=== PATIENT | female | born 1995 | race Caucasian/White ===

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

== ENCOUNTER 2017-09-03 09:45 | Emergency (ER) | payer BC ==
[2017-09-03 10:29] VITALS: BP 177/74
--- NOTE | 2017-09-03 11:02 | UC ---
Throat Pain/Nasal Errol HPI - HPI Summary HPI Summary: sore throat x 3 days + fever, chills, body aches dry cough brother + for Flu - History of Current Complaint Chief Complaint: UCRespiratory Stated Complaint: COUGH, ST, ACHES, CONGESTION Time Seen by Provider: 09/03/17 10:53 Hx Obtained From: Patient Hx Last Menstrual Period: 08/06/17 Onset/Duration: Gradual Onset, Lasting Days - 3, Still Present Severity: Moderate Pain Intensity: 8 Cough: Nonproductive Associated Signs & Symptoms: Positive: Nasal Discharge, Fever. Negative: Wheezing, Hoarseness, Sinus Discomfort, Rash - Allergies/Home Medications Allergies/Adverse Reactions: Allergies Allergy/AdvReac Type Severity Reaction Status Date / Time red dye Allergy Hives Verified 09/03/17 10:19 Beta shannan Allergy See Comment Uncoded 12/25/16 15:49 PMH/Surg Hx/FS Hx/Imm Hx Previously Healthy: Yes - Surgical History Surgical History: Yes Surgery Procedure, Year, and Place: tonsilectomy - Family History Known Family History: Positive: Hypertension - Social History Alcohol Use: Occasionally Substance Use Type: None Smoking Status (MU): Never Smoked Tobacco - Immunization History Vaccination Up to Date: Yes Review of Systems Constitutional: Fever, Chills, Fatigue Skin: Negative Eyes: Negative ENT: Sore Throat, Nasal Discharge Respiratory: Cough Cardiovascular: Negative Gastrointestinal: Negative Is Patient Immunocompromised?: No All Other Systems Reviewed And Are Negative: Yes Physical Exam Triage Information Reviewed: Yes Appearance: Well-Appearing, No Pain Distress, Well-Nourished Vital Signs: Initial Vital Signs Temp 98.8 F 09/03/17 10:20 Pulse 105 09/03/17 10:20 Resp 16 09/03/17 10:20 BP 177/74 09/03/17 10:20 Pulse Ox 98 09/03/17 10:20 Vital Signs Reviewed: Yes Eye Exam: Normal Eyes: Positive: Conjunctiva Clear ENT: Positive: Normal ENT inspection, Hearing grossly normal, Pharynx normal Neck: Positive: Supple, Nontender, No Lymphadenopathy Respiratory: Positive: Chest non-tender, Lungs clear, Normal breath sounds Cardiovascular: Positive: Tachycardia Abdominal Exam: Normal Skin Exam: Normal Throat Pain/Nasal Course/Dx - Differential Dx/Diagnosis Provider Diagnoses: influenza Discharge - Discharge Plan Condition: Stable Disposition: HOME Patient Education Materials: Influenza (ED) Forms: *School Release, *Work Release Referrals: Jason Jansen MD [Primary Care Provider] - If Needed
== END 2017-09-03 11:05 | disposition home or self-care (01) ==
LOC: UCCORT 09:45
DX: J11.1 Influenza due to unidentified influenza virus with other respiratory manifestations (principal)
CPT/HCPCS: 87502; 99211; G0463

== ENCOUNTER 2019-09-22 19:32 | Emergency (ER) | payer OTHER ==
[2019-09-22 19:56] VITALS: BP 146/72
--- NOTE | 2019-09-22 20:33 | UC ---
Complaint Female HPI - HPI Summary HPI Summary: 24-year-old female presenting at 21 weeks with "white clumpy discharge " and vaginal itching 3 days. Patient also notes burning with urination but not every time. Denies urinary frequency and urgency. Denies hematuria. Denies abdominal pain. Denies nausea or vomiting. Denies flank pain. Denies fever and chills. Patient states she thinks it is just sees infection but wants to make sure. States "concern for STDs because her partner was recently gone for a few days and won't tell her where he he went." - History Of Current Complaint Chief Complaint: UCGU Stated Complaint: /21 WKS PREG Hx Obtained From: Patient Hx Last Menstrual Period: 08/06/17 Pain Intensity: 0 - Allergies/Home Medications Allergies/Adverse Reactions: Allergies Allergy/AdvReac Type Severity Reaction Status Date / Time red dye Allergy Hives Verified 09/22/19 19:50 Beta shannan Allergy See Comment Uncoded 09/22/19 19:50 Home Medications: Home Medications Cephalexin CAP* [Keflex CAP*] 500 mg PO TID #12 cap 09/22/19 [Rx] Cephalexin CAP* [Keflex CAP*] 500 mg PO TID #15 cap 09/22/19 [Rx] Clotrimazole 1% VAGINAL CREAM* [Gyne-Lotrimin 1% VAGINAL CREAM*] 1 applic VAGINAL BEDTIME 7 Days #1 tube 09/22/19 [Rx] PMH/Surg Hx/FS Hx/Imm Hx Previously Healthy: Yes - Surgical History Surgical History: Yes Surgery Procedure, Year, and Place: tonsilectomy - Family History Known Family History: Positive: Hypertension - Social History Alcohol Use: None Substance Use Type: None Smoking Status (MU): Never Smoked Tobacco - Immunization History Vaccination Up to Date: Yes Review of Systems All Other Systems Reviewed And Are Negative: Yes Constitutional: Positive: Negative Skin: Positive: Negative Respiratory: Positive: Negative Cardiovascular: Positive: Negative Gastrointestinal: Positive: Negative Genitourinary: Positive: Dysuria, Vaginal/Penile Itching, Vaginal/Penile Discharge - White clumpy. Negative: Hematuria, Frequency, Urgency Musculoskeletal: Positive: Negative Neurological/Mental Status: Positive: Negative Physical Exam - Summary Physical Exam Summary: Vital Signs Reviewed: Yes A+Ox3, no distress, well-appearing Eyes: Conjunctiva Clear ENT: Hearing grossly normal neck: supple Respiratory: Positive: No respiratory distress, No accessory muscle use Cardiovascular: skin color reflect adequate perfusion Musculoskeletal Exam: HIGHTOWER x 4 without difficulty Neurological: Positive: Alert, ambulatory without difficulty Psychological: Positive: age appropriate behavior Skin: Positive: no rash, no ecchymosis Vital Signs: Initial Vital Signs Temp 97.9 F 09/22/19 19:51 Pulse 80 09/22/19 19:51 Resp 16 09/22/19 19:51 BP 146/72 09/22/19 19:51 Pulse Ox 100 09/22/19 19:51 Lab Results 09/22/19 Range/Units 20:15 POC Urine Color Yellow POC Urine Clarity Clear POC Urine pH 6.0 (5-9) POC Ur Specif [place] >= 1.030 (1.010-1.030) POC Urine Protein Negative (Negative) POC Ur Glucose (UA) Negative (Negative) POC Urine Ketones Negative (Negative) POC Urine Blood Negative (Negative) POC Urine Nitrite Negative (Negative) POC Urine Bilirubin Negative (Negative) POC Urine Urobilinogen 1.0 (Negative) POC U Leukocyte Esteras 1+ A (Negative) Complaint Female Dx - Course Course Of Treatment: UA 1+ leuks. I treated patient with Keflex for possible UTI. Patient allergic to red dye which is found and Macrobid so Keflex was used as alternative therapy. I also treated patient with clotrimazole vaginal cream for treatment of possible yeast infection based on symptoms. Patient declined pelvic exam so she self swabbed for yeast, BV, Trichomonas. Patient's urine was also sent for gonorrhea and chlamydia testing. I informed the patient should be notified with any positive results that require change in treatment. I also informed the patient and her blood pressure was elevated at her visit today and to follow up with her OB next week for reevaluation of symptoms and blood pressure. Patient voiced understanding and agreed with treatment plan. - Differential Dx/Diagnosis Differential Diagnosis/HQI/PQRI: Sexually Transmitted Disease, Urinary Tract Infection, Other - vulvovaginal candidiasis Provider Diagnosis: Vaginal yeast infection, UTI (urinary tract infection) Discharge ED - Sign-Out/Discharge Documenting (check all that apply): Patient Departure All imaging exams completed and their final reports reviewed: No Studies - Discharge Plan Condition: Stable Disposition: HOME Prescriptions: Cephalexin CAP* [Keflex CAP*] 500 mg PO TID #15 cap Cephalexin CAP* [Keflex CAP*] 500 mg PO TID #12 cap Clotrimazole 1% VAGINAL CREAM* [Gyne-Lotrimin 1% VAGINAL CREAM*] 1 applic VAGINAL BEDTIME 7 Days #1 tube Patient Education Materials: Yeast Infection (ED), Urinary Tract Infection in (ED) Referrals: Martha Fountain CNM [Primary Care Provider] - Additional Instructions: Take Keflex for treatment of possible UTI. Use the clotrimazole cream as prescribed for treatment of possible yeast infection. You will be notified with any positive results from urine and swab tests that require a change in treatment. Follow up with your PCP or OB if symptoms do not resolve. Go to emergency room with any new or worsening symptoms. - Billing Disposition and Condition Condition: STABLE Disposition: Home
[2019-09-22] MEDS ORDERED: Cephalexin CAP* 500 MG PO ONE (21:00)
--- NOTE | 2019-09-24 09:29 | UC ---
- Progress Note Progress Note: + gardnerella -could treat w/ flagyl at lower dose in 250mgs TID x 7 days. generally considered safe in but there is a black box warning as it is carcinogenic in mice and rats. She should call her OB to discuss further. + frances - treated w/ clotrimazole apprioprioately. GC/chlam pending Course/Dx - Diagnoses Provider Diagnoses: Vaginal yeast infection, UTI (urinary tract infection) Discharge ED - Sign-Out/Discharge Documenting (check all that apply): Post-Discharge Follow Up All imaging exams completed and their final reports reviewed: No Studies - Discharge Plan Condition: Stable Disposition: HOME Prescriptions: Cephalexin CAP* [Keflex CAP*] 500 mg PO TID #15 cap Cephalexin CAP* [Keflex CAP*] 500 mg PO TID #12 cap Clotrimazole 1% VAGINAL CREAM* [Gyne-Lotrimin 1% VAGINAL CREAM*] 1 applic VAGINAL BEDTIME 7 Days #1 tube Patient Education Materials: Yeast Infection (ED), Urinary Tract Infection in (ED) Referrals: Martha Fountain CNM [Primary Care Provider] - Additional Instructions: Take Keflex for treatment of possible UTI. Use the clotrimazole cream as prescribed for treatment of possible yeast infection. You will be notified with any positive results from urine and swab tests that require a change in treatment. Follow up with your PCP or OB if symptoms do not resolve. Go to emergency room with any new or worsening symptoms. - Billing Disposition and Condition Condition: STABLE Disposition: Home
[2019-09-26 12:32] LABS: Chlamydia trachomatis NAA Negative (Negative); Neisseria gonorrhoeae (GC) NAA Negative (Negative)
== END 2019-09-22 21:13 | disposition home or self-care (01) ==
LOC: UCCORT 19:32
DX: O98.812 Other maternal infectious and parasitic diseases complicating pregnancy, second trimester (principal); O23.42 Unspecified infection of urinary tract in pregnancy, second trimester; B37.3 Candidiasis of vulva and vagina; Z3A.21 21 weeks gestation of pregnancy; Z91.09 Other allergy status, other than to drugs and biological substances; Z88.8 Allergy status to other drugs, medicaments and biological substances
CPT/HCPCS: 81003; 87086; 87480; 87491; 87510; 87591; 87661; 99212; A9270-GY; G0463

== ENCOUNTER 2020-01-18 20:00 | Inpatient (IN) ==
[2020-01-18] MEDS ORDERED: Lactated Ringers 1000 ml BAG 1,000 ML IV ONE (20:58)
[2020-01-18] MEDS ORDERED: Lactated Ringers 1000 ml BAG 1,000 ML IV SCH (21:00)
[2020-01-18 21:58] LABS: Urine Benzodiazepine Screen None Detected (None Detect); Urine Cannabinoids Screen None Detected (None Detect); Urine Opiates Screen None Detected (None Detect)
[2020-01-19] MEDS ORDERED: Dinoprostone 10 MG VAG.SUPP VAGINAL ONE (11:24)
[2020-01-20] MEDS ORDERED: Oxytocin in LR 20 UNITS/1,000 ML BAG IVPB SCH (10:00)
[2020-01-20 10:18] LABS: ABS Eosinophils 0.1 10^3/ul (0-0.6); ABS Lymphocytes 1.8 10^3/ul (1.0-4.8); ABS Monocytes 0.7 10^3/ul (0-0.8); ABS Neutrophils 5.1 10^3/ul (1.5-7.7); Eosinophil % 0.7 %; Hematocrit 32 % (35-47); Hemoglobin 10.9 g/dL (12.0-16.0); Lymphocyte % 23.2 %; Mean Corpuscular HGB Conc 34 g/dL (31-36); Mean Corpuscular Hemoglobin 28 pg (27-31); Mean Corpuscular Volume 84 fL (80-97); Mean Platelet Volume 8.4 fL (7.4-10.4); Nucleated Red Blood Cells % 0.1; Platelet Count 329 10^3/uL (150-450); Red Blood Count 3.87 10^6 /uL (3.70-4.87); Red Cell Distribution Width 17 % (10-15); White Blood Count 7.7 10^3/uL (3.5-10.8)
[2020-01-20 10:37] LABS: Albumin 3.3 g/dL (3.2-5.2); BUN/Creatinine Ratio 23.9 (8-20); Calcium 8.8 mg/dL (8.6-10.3); EGFR African American 205.5 (>60); EGFR Non-African American 169.9 (>60); Globulin 3.1 g/dL (2-4); Potassium 3.9 mmol/L (3.5-5.0); Total Protein 6.4 g/dL (6.4-8.9); Uric Acid 3.7 mg/dL (2.3-6.6)
[2020-01-20 10:38] LABS: Albumin/Globulin Ratio 1.1 (1-3); Total Bilirubin 0.3 mg/dL (0.2-1.0)
[2020-01-20] MEDS ORDERED: OBEPIDURAL 250 ML EPIDURAL ONE (17:44)
[2020-01-20] MEDS ORDERED: EPHEDrine (Pressors) 50 MG/ML VIAL IV PUSH PRN ×2 (19:13)
[2020-01-20] MEDS ORDERED: Lactated Ringers 1000 ml BAG 500 ML IV PRN ×2 (19:13)
[2020-01-20] MEDS ORDERED: Phenylephrine 40 mcg/mL 10mL (400mcg) SYRINGE IV PUSH PRN ×2 (19:13)
[2020-01-20] MEDS ORDERED: Lactated Ringers 1000 ml BAG 1,000 ML IV ONE (19:13)
[2020-01-20] MEDS ORDERED: Sodium Citrate/Citric Acid LIQ 15 ML UDC PO PRN (19:13)
[2020-01-20] MEDS ORDERED: OBEPIDURAL 250 ML EPIDURAL SCH (20:00)
[2020-01-20] MEDS ORDERED: Lactated Ringers 1000 ml BAG 1,000 ML IV SCH (20:00)
[2020-01-20] MEDS ORDERED: Bupivacaine 0.25% SDV PF 10 ML VIAL INJ ONE (23:51)
[2020-01-21] MEDS ORDERED: Witch Hazel PAD JAR TOPICAL PRN (02:05)
[2020-01-21] MEDS ORDERED: Glycerin ADULT 2.4 gm SUPP PR PRN (02:05)
[2020-01-21] MEDS ORDERED: Dibucaine 1% OINT 28.35 GM TUBE PR PRN (02:05)
[2020-01-21] MEDS ORDERED: Methylergonovine 0.2 mg AMPULE 1 ml AMP IM ONE (02:05)
[2020-01-21] MEDS ORDERED: Lidocaine 1% VIAL 10 MG/ML VIAL ONE (02:20)
[2020-01-21] MEDS ORDERED: Methylergonovine 0.2 mg AMPULE 1 ml AMP ONE (02:20)
[2020-01-21] MEDS ORDERED: Oxytocin in LR 20 UNITS/1,000 ML BAG IVPB SCH (03:00)
[2020-01-21] MEDS ORDERED: Lactated Ringers 1000 ml BAG 1,000 ML IV SCH (03:00)
[2020-01-22 07:17] LABS: ABS Basophils 0.1 10^3/ul (0-0.2); ABS Eosinophils 0.1 10^3/ul (0-0.6); ABS Lymphocytes 2.3 10^3/ul (1.0-4.8); ABS Monocytes 0.8 10^3/ul (0-0.8); ABS Neutrophils 5.9 10^3/ul (1.5-7.7); Eosinophil % 1.2 %; Hematocrit 30 % (35-47); Lymphocyte % 25.4 %; Mean Corpuscular HGB Conc 34 g/dL (31-36); Mean Corpuscular Hemoglobin 28 pg (27-31); Mean Corpuscular Volume 84 fL (80-97); Mean Platelet Volume 8.2 fL (7.4-10.4); Platelet Count 298 10^3/uL (150-450); Red Blood Count 3.53 10^6 /uL (3.70-4.87); Red Cell Distribution Width 17 % (10-15); White Blood Count 9.3 10^3/uL (3.5-10.8)
[2020-01-22 07:37] VITALS: BP 125/57
== END 2020-01-22 11:38 | disposition home or self-care (01) | DRG 560 ==
LOC: MCHOBOUT 20:00 → MCHOB 20:55
PROVIDERS: ADMIT Midwife; ATTEND Midwife